=== PATIENT | male | born 1970 | race Caucasian/White ===

== ENCOUNTER 2018-05-18 15:05 | Emergency (ER) | payer OTHER, SELFPAY ==
[2018-05-18 15:09] VITALS: BP 168/109; PULSE 92; RESP 14; TEMP 36.8; O2SAT 100
--- NOTE | 2018-05-18 15:14 | NUR.NOTE ---
Pt. is running arm under cold water for comfort.
--- NOTE | 2018-05-18 15:27 | ED.GENADUL_ITS ---
Discharge Plan Disposition Patient Disposition: HOME Condition: Stable Discharge Details Chief Complaint: Burn Clinical Impression: Second degree burn of arm Primary Care Provider: Brent Perez ED Provider: Mary Valle Home Meds and New Rx's Prescriptions: New silver sulfadiazine [Silvadene] 1 % cream 1 applic TP DAILY Qty: 50 RF: 0 oxycodone 5 mg tablet 5 mg PO Q6H PRN (Reason: pain) Qty: 12 RF: 0 Continue losartan [Cozaar] 50 mg tablet 50 mg PO DAILY Qty: 90 RF: 3 Discharge Instructions Instructions: Second Degree Burn (ED) Additional Instructions: Apply the Silvadene cream to the affected area once to twice daily and cover with nonadherent dressings. Return to the emergency department for a wound check and dressing change. Follow-up with your primary care doctor in 2 days for reevaluation. Return immediately to the emergency department any worsening or new concerning symptoms at any time. Discharge Data Discharge Physician: Mary Valle Medical Decision Making 47-year-old male who presents with burn to left volar forearm approximately 3% superficial partial thickness with ruptured blisters that occurred after he came in contact with hot steam from a truck engine at work just prior to arrival. Also states he thinks he burned the left side of his face but there is no burn here and he denies any pain. Tetanus up-to-date last year. Patient appears uncomfortable. Patient drove himself here and is declining pain medication. Will give a dose of Tylenol and Motrin. Significant amount of grease and dirt noted to left palmar hand but no burn in this area. Will clean hand and forearm and debride loose skin around ruptured blisters and apply Silvadene. 1430 --left hand and forearm cleaned well with Hibclens. Loose skin above and around edges of blisters were debrided and silvadene cream was liberally applied to entire burn of forearm and covered with nonadherent dressing and kerlix. Patient was instructed to return here tomorrow for a wound check and dressing change. Patient was offered to come here Wednesday instead but states he will likely come here tomorrow. Patient was given tube of Silvadene and 2 tabs of oxycodone in addition to oxycodone prescription for home. Chart notes an allergy to codeine which causes itching but states he has tolerated oxycodone in the past without reaction. Instructed to return here at any time with any worsening or new concerning symptoms. HPI General Mode of arrival: ambulatory . Date/Time Provider Initiated Documentation: 05/18/18 15:25 . Limitations to Documentation: no limitations . Information obtained by: patient . HPI Narrative: Patient is a 47-year-old male who presents with burn to left forearm after contact with hot steam from a truck engine at work just prior to arrival. Patient states he pulled off his sweatshirt and this popped a blister on his arm. Patient has not taken anything for pain. Patient states it feels better to run under cool water. States his tetanus up-to-date one year ago. Patient states he also burned the left side of his face but does not see a burn there and there is no pain there. Past medical history: Hypertension, hyperlipidemia, kidney stone Surgical history: Hernia repair Medications: Losartan Allergies: Codeine (itching) PCP: [facility] Related Data Home Medications Medication Instructions Recorded Confirmed losartan 50 mg tablet 50 mg PO DAILY #90 tab-cap 03/18/18 05/18/18 oxycodone 5 mg PO Q6H PRN #12 tab 05/18/18 silver sulfadiazine [Silvadene] 1 applic TP DAILY #50 gm 05/18/18 Previous Rx's Medication Instructions Recorded losartan 50 mg tablet 50 mg PO DAILY #90 tab-cap 03/18/18 oxycodone 5 mg PO Q6H PRN #12 tab 05/18/18 silver sulfadiazine [Silvadene] 1 applic TP DAILY #50 gm 05/18/18 Allergies Allergy/AdvReac Type Severity Reaction Status Date / Time venom-honey bee Allergy Unknown Hives Unverified 03/18/18 09:20 codeine Allergy ITCHING Unverified 03/18/18 09:20 General Stated Complaint: Burn ARIAS: 2 Review of Systems Review of Systems All systems reviewed & are unremarkable except as noted in HPI and below Constitutional Reports as per HPI, Denies chills and Denies fever(s) Eyes Denies blurry vision ENT Denies dizziness, Denies sore throat and Denies throat swelling Cardiovascular Denies chest pain and Denies dyspnea Respiratory Denies dyspnea Gastrointestinal Denies abdominal pain, Denies diarrhea and Denies vomiting Genitourinary Denies hematuria and Denies dysuria Musculoskeletal Denies back pain and Denies numbness Integumentary/Breasts Denies lesions and Denies rash Neurologic Denies dizziness and Denies numbness Allergic/Immunologic Denies throat swelling PFSH Family History Mother Essential hypertension Father Diabetes Neoplasm Sister No problems noted. Sister No problems noted. Brother No problems noted. Grandfather No problems noted. Grandfather Diabetes Grandmother Heart disease Grandmother Diabetes Social History current occupational status: employed current occupation: Self employed Smoking/Tobacco Use Status: Current every day alcohol intake: never substance use type: does not use Exam Const General: cooperative, healthy appearing and no acute distress HENMT Head: normal to inspection Mouth: oral mucosae normal Eyes General: appearance normal, both eyes and all related structures Neck Neck: normal visual inspection Resp Effort & Inspection: normal respiratory effort and able to speak in complete sentences Cardio Rate: regular rate Skin Other: There is an approximate 3% second-degree partial-thickness burn with ruptured and intact blisters noted on volar aspect of the mid and distal forearm. There is some yellow active oozing. Full body images: 2 1. 3% second-degree partial-thickness Neuro General: alert, awake and oriented x3 Motor: muscle tone normal throughout Extrem General: normal to inspection and full ROM Elbow/forearm/wrist images: 2 1. 3% partial-thickness second-degree burn Other: Left radial and ulnar pulses intact. Cap refill less than 2 seconds. Psych Appearance: grossly normal Affect: normal affect Course Vital Signs Temperature 98.2 F 05/18/18 15:09 Pulse 92 H 05/18/18 15:09 Respiratory Rate 14 05/18/18 15:09 Blood Pressure 168/109 H 05/18/18 15:09 Pulse Oximetry 100 05/18/18 15:09 Temperature 98.2 F 05/18/18 15:09 Temperature Source Temporal Artery Scan 05/18/18 15:09 Pulse 92 H 05/18/18 15:09 Respiratory Rate 14 05/18/18 15:09 Blood Pressure 168/109 H 05/18/18 15:09 Pulse Oximetry 100 05/18/18 15:09 Pain Level 10 05/18/18 15:09
[2018-05-18] MEDS: Acetaminophen 325 MG TAB 650 MG PO (15:29)
[2018-05-18] MEDS: Ibuprofen 600 MG TAB PO (15:30)
--- NOTE | 2018-05-18 16:06 | NUR.NOTE ---
This RN scrubbed hand with soap and water, arm gently cleansed with soap and water. Pt. tolerated well.
[2018-05-18] MEDS: oxyCODONE 10 MG TAB PO (16:30)
--- NOTE | 2018-05-18 16:32 | NUR.NOTE ---
Wounds dressed with silvadene, non-stick dressing, wrapped in kerlix.
[2018-05-18 16:42] VITALS: BP 157/105; PULSE 85; RESP 14; O2SAT 100
== END 2018-05-18 16:46 | disposition home or self-care (01) ==
LOC: ER 16:56
PROVIDERS: Emergency Provider Physician Assistant; PCP Family Medicine
DX: T22.212A Burn of second degree of left forearm, initial encounter (principal); T31.0 Burns involving less than 10% of body surface; Y27.0XXA Contact with steam and hot vapors, undetermined intent, initial encounter
CPT/HCPCS: 99283

== ENCOUNTER 2018-05-19 12:59 | Emergency (ER) | payer OTHER, SELFPAY ==
[2018-05-19 13:04] VITALS: BP 152/88; PULSE 79; RESP 16; TEMP 37.2; O2SAT 99
--- NOTE | 2018-05-19 13:32 | W.ED.GENAD ---
Discharge Plan Disposition Patient Disposition: HOME Condition: Good Discharge Details Chief Complaint: Recheck Clinical Impression: Burn Primary Care Provider: Brent Perez ED Provider: Charles Calderon Home Meds and New Rx's Prescriptions: New amoxicillin-pot clavulanate [Augmentin] 875-125 mg tablet 1 tab PO BID Qty: 20 RF: 0 No Action losartan [Cozaar] 50 mg tablet 50 mg PO DAILY Qty: 90 RF: 3 silver sulfadiazine [Silvadene] 1 % cream 1 applic TP DAILY Qty: 50 RF: 0 oxycodone 5 mg tablet 5 mg PO Q6H PRN (Reason: pain) Qty: 12 RF: 0 Discharge Instructions Instructions: Third Degree Burn (ED), Second Degree Burn (ED) Referrals: Charles Calderon [employer] [Emergency Provider] - 1 day (At [facility]) Discharge Data Discharge Date/Time-TO BE ENTERED AT DEPARTURE: 05/19/18 13:44 Medical Decision Making I debrided the edges of the ruptured blisters. Changed to Bacitracin and started him on Augmentin. I will follow him in walk in clinic at . Advised to return for any signs of infection, increased redness, fever, etc. HPI General Mode of arrival: ambulatory. Date/Time Provider Initiated Documentation: 05/19/18 13:00. Limitations to Documentation: no limitations. Information obtained by: patient. History of Present Illness 47 year old M presents to the emergency department with the chief complaint of burn, described as moderate, HPI Narrative: 47 y/o male here for f/u on left wrist burn. Was seen here yesterday for chemical/mechanical burn. He had hot radiator fluid and steam splash on his left wrist. Was advised to return today for dressing change and wound check. Denies fevers but does feel warm. He has more swelling to the wrist today. 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 He has not taken any of the Percocet prescribed yesterday. Related Data Home Medications Medication Instructions Recorded Confirmed losartan 50 mg tablet 50 mg PO DAILY #90 tab-cap 03/18/18 05/19/18 oxycodone 5 mg PO Q6H PRN #12 tab 05/18/18 silver sulfadiazine [Silvadene] 1 applic TP DAILY #50 gm 05/18/18 amoxicillin-pot clavulanate 1 tab PO BID #20 tab 05/19/18 [Augmentin] Previous Rx's Medication Instructions Recorded losartan 50 mg tablet 50 mg PO DAILY #90 tab-cap 03/18/18 oxycodone 5 mg PO Q6H PRN #12 tab 05/18/18 silver sulfadiazine [Silvadene] 1 applic TP DAILY #50 gm 05/18/18 amoxicillin-pot clavulanate 1 tab PO BID #20 tab 05/19/18 [Augmentin] Allergies Allergy/AdvReac Type Severity Reaction Status Date / Time venom-honey bee Allergy Unknown Hives Unverified 03/18/18 09:20 codeine Allergy ITCHING Unverified 03/18/18 09:20 General Stated Complaint: Recheck ARIAS: 4 Review of Systems Eyes Reports system reviewed and no additional complaints, except as docu ENT Reports system reviewed and no additional complaints, except as docu Cardiovascular Reports system reviewed and no additional complaints, except as docu Respiratory Reports system reviewed and no additional complaints, except as docu Musculoskeletal Reports stiffness (left wrist) Integumentary/Breasts Comments: burn left wrist. Exam [facility] Head: atraumatic Ears: hearing grossly normal bilaterally and external ears normal General nose exam: external nose normal and nares normal Eyes General: appearance normal, both eyes and all related structures Neck Neck: normal visual inspection and full ROM Resp Effort & Inspection: normal respiratory effort Skin Wounds: wounds noted (burn to anterior side of left wrist. No drainage, no ascending redness, no lymphadema but there is swelling to the wrist. Volar side>dorsal side. Good CSMT to wrist, hand, and fingers. ) Neuro General: alert, awake and oriented x3 Extrem Right upper extremity: wrist (burn to anteriror side of wrist) Elbow/forearm/wrist images: 1. 2nd to 3rd degree caballero. Smal blisters intact to upper end of burn. Course Vital Signs Temperature 37.2 C 05/19/18 13:04 Pulse 79 05/19/18 13:04 Respiratory Rate 16 05/19/18 13:04 Blood Pressure 152/88 H 05/19/18 13:04 Pulse Oximetry 99 05/19/18 13:04 Temperature 37.2 C 05/19/18 13:04 Temperature Source Temporal Artery Scan 05/19/18 13:04 Pulse 79 05/19/18 13:04 Respiratory Rate 16 05/19/18 13:04 Respiratory Effort Non-Labored 05/19/18 13:06 Blood Pressure 152/88 H 05/19/18 13:04 Blood Pressure Position Sitting 05/19/18 13:04 Pulse Oximetry 99 05/19/18 13:04 Oxygen Delivery Method Room Air 05/19/18 13:04 Oxygen Flow Rate 0 05/19/18 13:04 Pain Level 0 05/19/18 13:04
--- NOTE | 2018-05-19 13:35 | ED.GENADUL_ITS ---
Discharge Plan Disposition Patient Disposition: HOME Condition: Good Discharge Details Chief Complaint: Recheck Clinical Impression: Burn Primary Care Provider: Brent Perez ED Provider: Charles Calderon Home Meds and New Rx's Prescriptions: New amoxicillin-pot clavulanate [Augmentin] 875-125 mg tablet 1 tab PO BID Qty: 20 RF: 0 No Action losartan [Cozaar] 50 mg tablet 50 mg PO DAILY Qty: 90 RF: 3 silver sulfadiazine [Silvadene] 1 % cream 1 applic TP DAILY Qty: 50 RF: 0 oxycodone 5 mg tablet 5 mg PO Q6H PRN (Reason: pain) Qty: 12 RF: 0 Discharge Instructions Instructions: Third Degree Burn (ED), Second Degree Burn (ED) Referrals: Charles Calderon SALVAGE WINDER [Emergency Provider] - 1 day (At [facility]) Discharge Data Discharge Date/Time-TO BE ENTERED AT DEPARTURE: 05/19/18 13:44 Medical Decision Making I debrided the edges of the ruptured blisters. Changed to Bacitracin and started him on Augmentin. I will follow him in walk in clinic at . Advised to return for any signs of infection, increased redness, fever, etc. HPI General Mode of arrival: ambulatory . Date/Time Provider Initiated Documentation: 05/19/18 13:00 . Limitations to Documentation: no limitations . Information obtained by: patient . History of Present Illness 47 year old M presents to the emergency department with the chief complaint of burn, described as moderate, HPI Narrative: 47 y/o male here for f/u on left wrist burn. Was seen here yesterday for chemical/mechanical burn. He had hot radiator fluid and steam splash on his left wrist. Was advised to return today for dressing change and wound check. Denies fevers but does feel warm. He has more swelling to the wrist today. 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 He has not taken any of the Percocet prescribed yesterday. Related Data Home Medications Medication Instructions Recorded Confirmed losartan 50 mg tablet 50 mg PO DAILY #90 tab-cap 03/18/18 05/19/18 oxycodone 5 mg PO Q6H PRN #12 tab 05/18/18 silver sulfadiazine [Silvadene] 1 applic TP DAILY #50 gm 05/18/18 amoxicillin-pot clavulanate 1 tab PO BID #20 tab 05/19/18 [Augmentin] Previous Rx's Medication Instructions Recorded losartan 50 mg tablet 50 mg PO DAILY #90 tab-cap 03/18/18 oxycodone 5 mg PO Q6H PRN #12 tab 05/18/18 silver sulfadiazine [Silvadene] 1 applic TP DAILY #50 gm 05/18/18 amoxicillin-pot clavulanate 1 tab PO BID #20 tab 05/19/18 [Augmentin] Allergies Allergy/AdvReac Type Severity Reaction Status Date / Time venom-honey bee Allergy Unknown Hives Unverified 03/18/18 09:20 codeine Allergy ITCHING Unverified 03/18/18 09:20 General Stated Complaint: Recheck ARIAS: 4 Review of Systems Eyes Reports system reviewed and no additional complaints, except as docu ENT Reports system reviewed and no additional complaints, except as docu Cardiovascular Reports system reviewed and no additional complaints, except as docu Respiratory Reports system reviewed and no additional complaints, except as docu Musculoskeletal Reports stiffness (left wrist) Integumentary/Breasts Comments: burn left wrist. Exam [facility] Head: atraumatic Ears: hearing grossly normal bilaterally and external ears normal General nose exam: external nose normal and nares normal Eyes General: appearance normal, both eyes and all related structures Neck Neck: normal visual inspection and full ROM Resp Effort & Inspection: normal respiratory effort Skin Wounds: wounds noted (burn to anterior side of left wrist. No drainage, no ascending redness, no lymphadema but there is swelling to the wrist. Volar side> dorsal side. Good CSMT to wrist, hand, and fingers. ) Neuro General: alert, awake and oriented x3 Extrem Right upper extremity: wrist (burn to anteriror side of wrist) Elbow/forearm/wrist images: 2 1. 2nd to 3rd degree caballero. Smal blisters intact to upper end of burn. Course Vital Signs Temperature 37.2 C 05/19/18 13:04 Pulse 79 05/19/18 13:04 Respiratory Rate 16 05/19/18 13:04 Blood Pressure 152/88 H 05/19/18 13:04 Pulse Oximetry 99 05/19/18 13:04 Temperature 37.2 C 05/19/18 13:04 Temperature Source Temporal Artery Scan 05/19/18 13:04 Pulse 79 05/19/18 13:04 Respiratory Rate 16 05/19/18 13:04 Respiratory Effort Non-Labored 05/19/18 13:06 Blood Pressure 152/88 H 05/19/18 13:04 Blood Pressure Position Sitting 05/19/18 13:04 Pulse Oximetry 99 05/19/18 13:04 Oxygen Delivery Method Room Air 05/19/18 13:04 Oxygen Flow Rate 0 05/19/18 13:04 Pain Level 0 05/19/18 13:04
[2018-05-19] MEDS: Amoxicillin 875/Clav. 125 TAB PO (13:42)
[2018-05-19] MEDS: Bacitracin 30 GM TUBE (13:42)
== END 2018-05-19 13:44 | disposition home or self-care (01) ==
LOC: ER 13:45
PROVIDERS: Emergency Provider Nurse Practitioner Family; PCP Family Medicine
DX: T23.272A Burn of second degree of left wrist, initial encounter (principal); T23.372A Burn of third degree of left wrist, initial encounter; X12.XXXA Contact with other hot fluids, initial encounter; X13.1XXA Other contact with steam and other hot vapors, initial encounter; Y99.0 Civilian activity done for income or pay; Y92.59 Other trade areas as the place of occurrence of the external cause; I10 Essential (primary) hypertension
CPT/HCPCS: 16020

== ENCOUNTER 2018-07-05 10:48 | Outpatient (CLI) | payer OTHER, SELFPAY ==
[2018-07-05 12:55] LABS: Abs Immature Grans 0.01 k/cumm (0.0-0.09); Absolute Basophil Count 0.03 k/cumm (0.0-0.2); Absolute Lymphocyte Count 1.78 k/cumm (1.2-3.4); Absolute Monocyte Count 0.43 k/cumm (0.11-0.7); Absolute Neutrophil Count 3.55 k/cumm (1.2-6.7); Basophils % 0.5; Eosinophils % 1.7; HCT 38.2 % (40.0-50.0); HGB 13.4 g/dL (13.5-17.5); Immature Grans % 0.2; Lymphocytes % 30.2; Mean Corp. HGB Concentration 35.1 g/dL (32.0-36.0); Mean Corpuscular Hemoglobin 30.5 pg (27.0-33.0); Mean Platelet Volume 10.1 fL (8.0-11.0); Monocytes % 7.3; Neutrophils % 60.1; Platelet Count 336 x1000/uL (130-400); RBC 4.39 m/cumm (4.50-6.00); RBC Distribution Width 12.6 % (11.8-14.1)
[2018-07-05 13:17] LABS: ALT 30 U/L (12-78); AST 16 U/L (15-37); Albumin 3.8 g/dL (3.4-5.0); Alkaline Phosphatase 91 U/L (46-116); Anion Gap 9.4 mmol/L (3-11); BUN 12 mg/dL (7-18); Bilirubin, Total 0.4 mg/dL (0.2-1.0); CO2 32.6 mmol/L (21.0-32.0); Calcium 9.4 mg/dL (8.5-10.1); Chloride 99 mmol/L (98-107); Cholesterol 217 mg/dL (50-200); Glucose 90 mg/dL (70-100); HDL Cholesterol 36 mg/dL (40-60); LDL CHOLESTEROL 116 mg/dL (<100); Potassium 3.1 mmol/L (3.5-5.1); Sodium 141 mmol/L (136-145); Total Protein 7.7 g/dL (6.4-8.2); Triglyceride 348 mg/dL (30-150)
[2018-07-05 14:02] LABS: ESR 33 MM/HR (0-15)
== END 2018-07-05 11:08 ==
PROVIDERS: PCP Family Medicine; Visit Provider Family Medicine
DX: R51 Headache (principal); Z00.00 Encounter for general adult medical examination without abnormal findings; E78.5 Hyperlipidemia, unspecified; I10 Essential (primary) hypertension
CPT/HCPCS: 36415; 80053; 80061; 83721; 85652; 85025

== ENCOUNTER 2018-12-03 10:13 | Emergency (ER) | payer OTHER, SELFPAY ==
[2018-12-03 10:17] VITALS: BP 140/91; PULSE 95; RESP 14; TEMP 36.7; O2SAT 98
[2018-12-03] MEDS: Balanced Salt Solution 15 ML BTL OP (10:28)
[2018-12-03] MEDS: Erythromycin Ophth Oint 3.5 GM TUBE OP (10:29)
[2018-12-03] MEDS: Fluorescein STRIPS 100/BOX 1 MG OP (10:29)
[2018-12-03] MEDS: Tetracaine 0.5% 4 ML BTL OP (10:29)
--- NOTE | 2018-12-03 11:55 | ED.GENADUL_ITS ---
Discharge Plan Disposition Patient Disposition: HOME Condition: Improving Discharge Details Chief Complaint: EyeProblem Clinical Impression: Foreign body of left eye Primary Care Provider: Brent Perez ED Provider: Rashad Camara Home Meds and New Rx's Prescriptions: Continued losartan [Cozaar] 50 mg tablet 50 mg PO DAILY Qty: 90 RF: 3 Discharge Instructions Instructions: Eye Foreign Body (ED) Additional Instructions: Please use the provided ointment 4 times daily and apply half inch to left lower eyelid for the next 5 days. Please follow-up with [facility] for reassessment in the next couple days. Return to the emergency department for any new or significant worsening of symptoms or further concerns. Referrals: [facility] [Outside] (Follow-up in the next couple days for reassessment and to ensure that your eye is healing well.) Discharge Data Discharge Date/Time-TO BE ENTERED AT DEPARTURE: 12/03/18 12:02 Medical Decision Making Left eye foreign body 3 days ago. Patient states that he was filing a chainsaw with a hand file when the wind blew and he felt that he got objects into his left eye. Slit-lamp exam and Keller lamp shows slight dye uptake approximately 3 o'clock on the conjunctitiva involvement, small particulate foreign bodies that were removed with moistened cotton tip swab but no rust ring is noted no other abnormality seen. Given area of dye uptake and foreign bodies patient placed up on erythromycin ointment 4 times daily for the next 5 days. Tetanus is up-to-date. Return precautions discussed. Patient to follow-up with [facility] for reassessment. After discussion of diagnosis and plan of care patient has no further needs, questions, or concerns and states clear understanding to return to the emergency department for any worsening symptoms. HPI General Mode of arrival: ambulatory . Date/Time Provider Initiated Documentation: 12/03/18 10:23 . Limitations to Documentation: no limitations . Information obtained by: patient and RN notes reviewed . History of Present Illness 48 year old M presents to the emergency department with the chief complaint of Left eye foreign body, described as moderate, with intensity rated at 2. Quality is described as burning, and is localized to the eyes and left. Patient started experiencing this day(s) (3) and it has been constant. Patient notes no other symptoms.. Patient did receive the following treatments prior to arrival, none Related Data Home Medications Medication Instructions Recorded Confirmed losartan 50 mg tablet 50 mg PO DAILY #90 tab-cap 03/18/18 12/03/18 Previous Rx's Medication Instructions Recorded losartan 50 mg tablet 50 mg PO DAILY #90 tab-cap 03/18/18 Allergies Allergy/AdvReac Type Severity Reaction Status Date / Time venom-honey bee Allergy Unknown Hives Unverified 12/03/18 10:20 codeine Allergy ITCHING Unverified 12/03/18 10:20 General Stated Complaint: EyeProblem ARIAS: 3 Review of Systems Constitutional Denies headache(s) Eyes Reports as per HPI, Denies blind spots, Denies diplopia, Denies eye discharge, Reports irritation, Denies loss of vision, Reports eye pain and Reports photophobia ENT Denies headache(s) Neurologic Denies headache(s), Denies loss of vision and Denies other visual disturbances PFSH Family History Mother Essential hypertension Father Diabetes Neoplasm Sister No problems noted. Sister No problems noted. Brother No problems noted. Grandfather No problems noted. Grandfather Diabetes Grandmother Heart disease Grandmother Diabetes Social History Smoking/Tobacco Use Status: Current every day Alcohol Intake: never Drug use: Never Substance use type: does not use current occupation: Self employed What type of physical activity do you participate in: none Do you feel safe at home: Yes Do you feel safe in your relationship?: Yes Exam Const General: cooperative, no acute distress and not ill appearing Orientation: alert, awake and oriented x3 HENMT Head: normal to inspection, normocephalic and atraumatic Eyes General: appearance normal, both eyes and all related structures Visual Rueda: normal visual rueda by confrontation Alignment and Position: alignment normal and position normal Periorbital: periorbital findings normal Eyelids: eyelids normal Conjunctivae: conjunctival abnormality left other (dye uptake at 3 o'clock) Sclera: sclerae normal Cornea: corneas normal and fluorescein used Pupils: PERRL, normal by confrontation and accommodation normal EOM: EOM intact bilaterally Resp Effort & Inspection: normal respiratory effort, able to speak in complete sente nces and no respiratory distress Course Vital Signs Temperature 36.7 C 12/03/18 10:17 Pulse 95 H 12/03/18 10:17 Respiratory Rate 14 12/03/18 10:17 Blood Pressure 140/91 H 12/03/18 10:17 Pulse Oximetry 98 12/03/18 10:17 Temperature 36.7 C 12/03/18 10:17 Temperature Source Temporal Artery Scan 12/03/18 10:17 Pulse 95 H 12/03/18 10:17 Respiratory Rate 14 12/03/18 10:17 Respiratory Effort Non-Labored 12/03/18 10:17 Blood Pressure 140/91 H 12/03/18 10:17 Blood Pressure Position Sitting 12/03/18 10:17 Pulse Oximetry 98 12/03/18 10:17 Oxygen Delivery Method Room Air 12/03/18 10:17 Oxygen Flow Rate 0 12/03/18 10:17 Pain Level 2 12/03/18 10:17
== END 2018-12-03 12:02 | disposition home or self-care (01) ==
PROVIDERS: Emergency Provider Nurse Practitioner Family; PCP Family Medicine
DX: T15.12XA Foreign body in conjunctival sac, left eye, initial encounter (principal); X58.XXXA Exposure to other specified factors, initial encounter
CPT/HCPCS: 99283

== ENCOUNTER 2019-12-19 08:16 | Emergency (ER) | payer OTHER, SELFPAY ==
[2019-12-19 08:21] VITALS: BP 190/116; PULSE 78; RESP 16; TEMP 36.7; O2SAT 99
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
[2019-12-19 09:15] VITALS: BP 185/113; PULSE 77; RESP 16; TEMP 36.7; O2SAT 98
== END 2019-12-19 09:05 | disposition home or self-care (01) ==
PROVIDERS: Emergency Provider Physician Assistant; PCP Family Medicine
DX: M25.611 Stiffness of right shoulder, not elsewhere classified (principal); M25.612 Stiffness of left shoulder, not elsewhere classified; M25.60 Stiffness of unspecified joint, not elsewhere classified; V03.10XA Pedestrian on foot injured in collision with car, pick-up truck or van in traffic accident, initial encounter; Y99.0 Civilian activity done for income or pay; Z91.14 Patient's other noncompliance with medication regimen; I10 Essential (primary) hypertension
CPT/HCPCS: 99282; 99283

== ENCOUNTER 2020-02-14 02:56 | Outpatient (CLI) | payer BC, SELFPAY ==
[2020-02-14 07:29] LABS: HCT 44.6 % (40.0-50.0); HGB 15.3 g/dL (13.5-17.5); MCH 30.4 pg (27.0-33.0); MCHC 34.3 % (32.0-36.0); MCV 88.7 fL (80-95); MPV 9.9 fL (8.0-11.0); Platelet Count 275 10^3/uL (130-400); RBC 5.03 10^6/uL (4.36-5.78); RDW 12.4 % (11.8-14.1); RDW-SD 40.3 fL; WBC 6.21 10^3/uL (4.4-10.8)
[2020-02-14 08:03] LABS: ALT 43 U/L (16-63); AST 20 U/L (15-37); Albumin 3.9 g/dL (3.4-5.0); Alkaline Phosphatase 136 U/L (46-116); BUN 18 mg/dL (7-18); Bilirubin, Total 0.5 mg/dL (0.2-1.0); CREATININE 0.95 mg/dL (0.70-1.30); Calcium 9.2 mg/dL (8.5-10.1); Calculated LDL 163 mg/dL (<100); Chloride 107 mmol/L (98-107); Cholesterol 241 mg/dL (<200); Glucose 114 mg/dL (74-106); HDL Cholesterol 40 mg/dL (40-60); Magnesium 2.1 mg/dL (1.8-2.4); Potassium 5.2 mmol/L (3.5-5.1); Sodium 143 mmol/L (136-145); Total Protein 7.3 g/dL (6.4-8.2); Triglyceride 191 mg/dL (<150)
== END 2020-02-14 03:16 ==
PROVIDERS: PCP Student in an Organized Health Care Education/Training Program; Visit Provider Student in an Organized Health Care Education/Training Program
DX: Z00.00 Encounter for general adult medical examination without abnormal findings (principal); Z13.220 Encounter for screening for lipoid disorders; E87.6 Hypokalemia; I10 Essential (primary) hypertension
CPT/HCPCS: 36415; 80053; 80061; 85027; 83735

== ENCOUNTER 2020-04-05 11:37 | Outpatient (REF) | payer BC, SELFPAY ==
[2020-04-05 19:10] LABS: Anion Gap 8.7 mmol/L (3-11); BUN 14 mg/dL (7-18); CO2 26.3 mmol/L (21.0-32.0); CREATININE 0.99 mg/dL (0.70-1.30); Calcium 9.2 mg/dL (8.5-10.1); Chloride 105 mmol/L (98-107); Glucose 97 mg/dL (74-106); Potassium 4.1 mmol/L (3.5-5.1); Sodium 140 mmol/L (136-145)
== END 2020-04-05 11:57 ==
LOC: LBO 11:37
PROVIDERS: PCP Student in an Organized Health Care Education/Training Program; Visit Provider Student in an Organized Health Care Education/Training Program
DX: I10 Essential (primary) hypertension (principal); E87.5 Hyperkalemia
CPT/HCPCS: 80048

== ENCOUNTER 2020-06-23 15:44 | Emergency (ER) | payer BC, SELFPAY ==
[2020-06-23 15:49] VITALS: BP 171/87; PULSE 84; RESP 18; TEMP 37.2; O2SAT 99
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
[2020-06-23] MEDS: Cephalexin 500 MG CAP, 4 CAPS/BTL PO (16:41)
--- NOTE | 2020-06-24 09:19 | NUR.NOTE ---
Lab called to report preliminary results of knee wound culture. Patient has Group A Strep in wound culture. Dr. Ros Escalera made aware of findings.
== END 2020-06-23 16:58 | disposition home or self-care (01) ==
PROVIDERS: Emergency Provider Emergency Medicine; PCP Student in an Organized Health Care Education/Training Program
DX: L03.115 Cellulitis of right lower limb (principal); L02.415 Cutaneous abscess of right lower limb; B95.0 Streptococcus, group A, as the cause of diseases classified elsewhere; I10 Essential (primary) hypertension
CPT/HCPCS: 10061; 87077; 87070; 87205

== ENCOUNTER 2021-06-26 03:24 | Outpatient (CLI) | payer BC, SELFPAY ==
[2021-06-26 13:43] LABS: Anion Gap 12.6 mmol/L (3-11); BUN 11 mg/dL (7-18); CO2 23.4 mmol/L (21.0-32.0); Calculated LDL 168 mg/dL (<100); Chloride 103 mmol/L (98-107); Cholesterol 255 mg/dL (<200); Glucose 149 mg/dL (74-106); HDL Cholesterol 42 mg/dL (40-60); Potassium 3.6 mmol/L (3.5-5.1); Sodium 139 mmol/L (136-145); Triglyceride 225 mg/dL (<150)
[2021-06-27 10:34] LABS: Lyme Ab w Rflx to Lyme Confirm Negative (Negative)
[2021-06-27 11:25] LABS: Hepatitis C Ab w Rflx HCV PCR Negative (Negative)
[2021-06-27 11:43] LABS: HIV-1/2 Ag & Ab Screen Negative (Negative)
[2021-06-27 15:48] LABS: ANA Interpretation Negative (Negative)
[2021-06-30 00:29] LABS: Anaplasma phagocytophilum Negative (Negative); B. miyamotoi PCR Negative (Negative); Babesia divergens/MO-1 Negative (Negative); Babesia duncani Negative (Negative); Babesia microti Negative (Negative); Ehrlichia chaffeensis Negative (Negative); Ehrlichia ewingii/canis Negative (Negative); Ehrlichia muris eauclairensis Negative (Negative)
== END 2021-06-26 03:25 | disposition home or self-care (01) ==
LOC: LBO 03:25
PROVIDERS: Nurse Practitioner; PCP Student in an Organized Health Care Education/Training Program; Visit Provider Student in an Organized Health Care Education/Training Program
DX: I10 Essential (primary) hypertension (principal); Z13.220 Encounter for screening for lipoid disorders; Z83.3 Family history of diabetes mellitus; W57.XXXA Bitten or stung by nonvenomous insect and other nonvenomous arthropods, initial encounter; Z11.59 Encounter for screening for other viral diseases; Z11.4 Encounter for screening for human immunodeficiency virus [HIV]
CPT/HCPCS: 36415; 80048; 80061; 86803; 87389; 87798; 86038; 86618

== ENCOUNTER 2023-08-12 10:04 | Outpatient (CLI) | payer SELFPAY ==
[2023-08-12 10:30] LABS: Abs Immature Grans 0.02 10^3/uL (0.0-0.06); Absolute Basophil Count 0.06 10^3/uL (0.0-0.2); Absolute Eosinophil Count 0.23 10^3/uL (0.0-0.7); Absolute Lymphocyte Count 1.51 10^3/uL (1.2-3.4); Absolute Monocyte Count 0.47 10^3/uL (0.1-0.8); Absolute Neutrophil Count 3.75 10^3/uL (1.2-6.7); Eosinophils % 3.8; HCT 44.3 % (40.0-50.0); HGB 15.5 g/dL (13.5-17.5); Immature Grans % 0.3; MCH 30.9 pg (27.0-33.0); MCV 88 fL (80-95); MPV 9.3 fL (8.0-11.0); Monocytes % 7.8; Neutrophils % 62.1; Platelet Count 288 10^3/uL (130-400); RBC 5.02 10^6/uL (4.36-5.78); RDW 12.6 % (11.8-14.1); RDW-SD 40.6 fL; WBC 6.04 10^3/uL (4.4-10.8)
[2023-08-12 11:24] LABS: ALT 38 U/L (16-63); AST 17 U/L (15-37); Alkaline Phosphatase 117 U/L (46-116); Anion Gap 10.7 mmol/L (3-11); BUN 9 mg/dL (7-18); Bilirubin, Total 0.5 mg/dL (0.2-1.0); CO2 26.3 mmol/L (21.0-32.0); CREATININE 0.8 mg/dL (0.70-1.30); Calcium 9.1 mg/dL (8.5-10.1); Chloride 106 mmol/L (98-107); Estimated GFR 105.17 (mL/min/1.73m2); Glucose 108 mg/dL (74-106); Potassium 3.9 mmol/L (3.5-5.1); Sodium 143 mmol/L (136-145); Total Protein 7.6 g/dL (6.4-8.2)
[2023-08-12 22:46] LABS: Hemoglobin A1C 5.5 % (<5.7)
[2023-08-13 11:03] LABS: Lyme Ab w Rflx to Lyme Confirm Negative (Negative)
[2023-08-15 13:19] LABS: Anaplasma phagocytophilum Negative (Negative); B. miyamotoi PCR Negative (Negative); Babesia divergens/MO-1 Negative (Negative); Babesia duncani Negative (Negative); Babesia microti Negative (Negative); Ehrlichia chaffeensis Negative (Negative); Ehrlichia ewingii/canis Negative (Negative); Ehrlichia muris eauclairensis Negative (Negative)
[2023-08-18 16:51] LABS: Lab Add On Test DONE
== END 2023-08-12 10:05 | disposition home or self-care (01) ==
LOC: LBO 10:08
PROVIDERS: PCP Student in an Organized Health Care Education/Training Program; Visit Provider Student in an Organized Health Care Education/Training Program
DX: K76.9 Liver disease, unspecified (principal); Z91.89 Other specified personal risk factors, not elsewhere classified; S30.860A Insect bite (nonvenomous) of lower back and pelvis, initial encounter; W57.XXXA Bitten or stung by nonvenomous insect and other nonvenomous arthropods, initial encounter; A69.23 Arthritis due to Lyme disease; B88.2 Other arthropod infestations; R73.09 Other abnormal glucose
CPT/HCPCS: 36415; 80053; 87798; 83036; 85025; 86618

== ENCOUNTER 2023-08-19 12:01 | Outpatient (CLI) | payer BC, SELFPAY ==
[2023-08-20 19:33] LABS: Galactose-alpha-1,3 IgE 2.32 kU/L (<0.70)
== END 2023-08-19 12:02 | disposition home or self-care (01) ==
LOC: LBO 12:01
PROVIDERS: PCP Student in an Organized Health Care Education/Training Program; Visit Provider Student in an Organized Health Care Education/Training Program
DX: Z91.018 Allergy to other foods (principal); S30.860A Insect bite (nonvenomous) of lower back and pelvis, initial encounter; W57.XXXA Bitten or stung by nonvenomous insect and other nonvenomous arthropods, initial encounter; B88.2 Other arthropod infestations; X58.XXXA Exposure to other specified factors, initial encounter
CPT/HCPCS: 36415; 86003

== ENCOUNTER 2025-01-06 07:03 | Emergency (ER) | payer SELFPAY ==
[2025-01-06] VITALS (26 sets, daily range): BP systolic 146–191; BP diastolic 83–120; PULSE 65–117; RESP 11–25; TEMP 36.6; O2SAT 91–100
--- NOTE | 2025-01-06 07:00 | RT.EKG_ITS ---
APPROVED REPORT Exam: Resting ECG Reason for Exam: SOB Patient Location: E HR:101 bpm ECG Measurements Heart Rate 101 AXIS WY 156 P 28 QRSd 94 QRS 10 QT 371 T -35 QTc 481 Conclusion Sinus tachycardia...rate> 99 Probable left atrial enlargement...P >50mS, <-0.10mV V1
--- NOTE | 2025-01-06 07:00 | RT.EKG_ITS ---
APPROVED REPORT Exam: Resting ECG Reason for Exam: SOB Patient Location: E HR:103 bpm ECG Measurements Heart Rate 103 AXIS CO 155 P 0 QRSd 96 QRS -23 QT 374 T -29 QTc 491 Conclusion Sinus tachycardia, rate 103 Borderline QTc prolongation at 493ms No STEMI T wave inversion III, aVF, no priors available for comparison
--- NOTE | 2025-01-06 07:00 | DI.RAD_ITS ---
Exam(s) XR CHEST 2V PA LATERAL EXAM: XR CHEST 2V PA LATERAL CLINICAL HISTORY: shortness of breath TECHNIQUE: 2D digital imaging was performed. Two views. COMPARISON: CR CHEST 2 VIEWS PA,LAT from 06/30/2012 CR CHEST 2 VIEWS PA,LAT from 02/24/2016 FINDINGS: HEART: Normal size. Aorta: Not dilated. PULMONARY VASCULATURE: Normal. MEDIASTINUM: Unremarkable. LUNGS: Clear. PLEURAL SPACE: No pleural effusion or pneumothorax. BONE:Old calcification adjacent to the right ribs. Present on 2012 exam. SOFT TISSUES: Unremarkable. IMPRESSION: No acute abnormality. The preliminary [facility] report was reviewed. DATA REPOSITORY: RADIATION DOSE DELIVERED:
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
[2025-01-06 07:30] LABS: Abs Immature Grans 0.04 10^3/uL (0.0-0.06); HCT 43.8 % (40.0-50.0); HGB 15.4 g/dL (13.5-17.5); Immature Grans % 0.6 %; MCH 31.8 pg (27.0-33.0); MCHC 35.2 % (32.0-36.0); MCV 90 fL (80-95); MPV 9.9 fL (8.0-11.0); Platelet Count 261 10^3/uL (130-400); RBC 4.85 10^6/uL (4.36-5.78); RDW 12.3 % (11.8-14.1); RDW-SD 40.9 fL; WBC 7.10 10^3/uL (4.4-10.8)
[2025-01-06] MEDS: Aspirin 81 MG CHEW 324 MG CH (07:35)
[2025-01-06] MEDS: Furosemide 40 MG/4 ML VIAL IVP (07:49)
[2025-01-06 07:52] LABS: ALT 42 U/L (16-63); AST 17 U/L (15-37); Albumin 3.8 g/dL (3.4-5.0); Alkaline Phosphatase 131 U/L (46-116); Anion Gap 11.5 mmol/L (3-11); BUN 14 mg/dL (7-18); Bilirubin, Total 0.3 mg/dL (0.2-1.0); CO2 26.5 mmol/L (21.0-32.0); Calcium 8.5 mg/dL (8.5-10.1); Chloride 104 mmol/L (98-107); Estimated GFR 78.79 (mL/min/1.73m2); Glucose 158 mg/dL (74-106); Magnesium 2.0 mg/dL (1.8-2.4); NT-proBNP 331 pg/mL (<300); Potassium 3.2 mmol/L (3.5-5.1); Sodium 142 mmol/L (136-145); Total Protein 7.3 g/dL (6.4-8.2); Troponin I 21 ng/L (<or=76)
[2025-01-06] MEDS: Potassium Chloride 20 MEQ TABCR 40 MEQ PO (08:12)
[2025-01-06 08:42] LABS: Troponin I 17 ng/L (<or=76)
--- NOTE | 2025-01-06 08:59 | DI.VRAD_ITS ---
PROCEDURE INFORMATION: Exam: XR Chest Exam date and time: 01/06/2025 7:34 AM Age: 54 years old Clinical indication: Other: SOB TECHNIQUE: Imaging protocol: Radiologic exam of the chest. Views: 2 views. COMPARISON: No relevant prior studies available. FINDINGS: Lungs: No focal consolidation. Pleural spaces: No large pleural effusion. Heart/Mediastinum: No cardiomegaly. Bones/joints: Elongated density projecting over the right upper lung, possibly osseous lesion or soft tissue calcification. Cannot exclude pleural or parenchymal pathology. . IMPRESSION: 1. No acute findings to explain reported symptoms. 2. Findings as above. Dictated and Authenticated by: Jenelle Fitzgerald MD. Orderin [facility]. Andres Burch MD
[2025-01-06] MEDS: amLODIPine 5 MG TAB 10 MG PO (09:52)
== END 2025-01-06 09:57 | disposition home or self-care (01) ==
LOC: ER 10:19
PROVIDERS: Emergency Provider Emergency Medicine; PCP Nurse Practitioner Family
DX: R06.02 Shortness of breath (principal); I10 Essential (primary) hypertension; R00.0 Tachycardia, unspecified; R94.31 Abnormal electrocardiogram [ECG] [EKG]; T46.1X6A Underdosing of calcium-channel blockers, initial encounter; F17.220 Nicotine dependence, chewing tobacco, uncomplicated; Z91.148 Patient's other noncompliance with medication regimen for other reason
CPT/HCPCS: 36415; 80053; 93005; 93308; 96374; 99285; 71046; 83735; 83880; 84484; 85025; 93010; 99284; J1938

== ENCOUNTER 2025-01-23 02:52 | Outpatient (CLI) | payer SELFPAY ==
--- NOTE | 2025-01-23 08:45 | DI.US_ITS ---
APPROVED REPORT EXAM: Comprehensive 2D, Doppler, and color-flow Echocardiogram Patient Location: Out-Patient Loading Machine Operator: Mushtaq Arzate RDCS (AE) Indications: Dyspnea on exertion, HTN Other Information Study Quality: Adequate Conclusion Normal left ventricular wall thickness and chamber size. Ejection fraction is 60%. Wall motion is normal Normal right ventricular size and function Both atria are normal in size There is no structural or hemodynamically significant valvular disease Ascending aorta measures 3.76 cm Wall motion Left Ventricle The left ventricle is normal size. Left ventricular systolic function is normal. The left ventricular ejection fraction is within the normal range. Mild basal septal hypertrophy is present. There is normal LV segmental wall motion. There is no ventricular septal defect visualized. LVEF is 60-65%. Right Ventricle The right ventricle is normal size. The right ventricular systolic function is normal. Atria The left atrium size is normal. The right atrium size is normal. The interatrial septum is intact with no evidence for an atrial septal defect. Aortic Valve The aortic valve is normal in structure. Aortic valve is trileaflet. There is no aortic valvular stenosis. No aortic regurgitation is present. Mitral Valve The mitral valve is normal in structure. No evidence of mitral valve stenosis. There is no mitral valve regurgitation noted. Tricuspid Valve The tricuspid valve is normal in structure. There is no tricuspid valve stenosis. Trace tricuspid regurgitation. Pulmonic Valve The pulmonary valve is normal in structure. There is no pulmonic valvular stenosis. Mild pulmonic regurgitation. Great Vessels The aortic root is normal in size. The pulmonary artery is normal. The ascending aorta is mildly dilated. Aortic arch is normal in caliber. Pericardium There is no pericardial effusion. 2D Dimensions IVSD d PLAX 1.44 cm M: 0.6-1.2 Ao Root d 3.52 cm M: 3.1 - 3.7 LVPW d PLAX 1.15 cm M: 0.6 - 1.2 Ao Asc Diam d 3.76 cm M: 2.6 - 3.4 LVID d PLAX 4.17 cm M: 4.2 - 5.8 LVDs 2.85 cm M: 2.5 - 4.0 LV EF Teichholz 60.0 % FS 31.60 % LV EDV (Teich) 77.1 mL LV ESV (Teich) 30.8 mL Stroke Vol Index (Teich) 23.35 M-Mode TAPSE 2.61 cm (M/F) >1.7 Auto EF LV EDV A4C 169.6 mL LV EDV A2C 153.0 mL LV EDV BP 160.9 mL LV ESV A4C 76.8 mL LV ESV A2C 63.7 mL LV ESV BP 69.5 mL LVEF(%) A4C 54.7 % LVEF(%) A2C 58.4 % LVEF(%) BP 56.8 % LV SV A4C 92.8 ml LV SV A2C 89.3 ml LV SV BP 91.5 ml LV CO A4C 6.6 L/min LV CO A2C 6.4 L/min LV CO BP 6.5 L/min HR A4C 71.15 BPM HR A2C 71.83 BPM LV EDV Index (BP) LA Volume LA Length A4C 4.5 cm LA Length A2C LA Area A4C s 13.81 cm2 LA Area A2C s LA Vol A4C A-L 36.08 mL LA Vol A2C A-L LA Vol Biplane A-L LA Vol A4C MOD 33.2 mL LA Vol A2C MOD LA Vol BP MOD RA Volume RA Area A4C 6.9 cm2 RA ESV A4C (A-L) 8.7mL RA Vol/BSA A4C A-L RA Length A4C 4.6 cm RA ESV A4C (MOD) 8.6mL LV Diastology MV E' medial 0.068 (>0.07 m/s) MV E Vmax 0.58 (0.4-1.3 m/s) MV E/E' MED 8.55 (<14) MV A Vmax 0.80 (0.4-1.3 m/s) MV E' lateral 0.082 (>0.1 m/s) E/A Ratio 0.7 MV E/E' LAT 7.08 (<14) MV E' Average 0.075 m/s MV E/E'(average) 7.75 Aortic Valve AoV Vmax 1.03 m/s LVOT Vmax 0.91 m/s AoV Peak Grad 4.2 mmHg LVOT Peak Grad 3.3 mmHg AoV Area (Vmax) 3.91 cm2 LVOT VTI 0.194 m AoV VTI 0.231 m LVOT Mean Grad 1.9 mmHg AoV Mean Gio. 0.76 m/s LVOT SV 85.48 mL AoV Mean Grad 2.6 mmHg LVOT Diam s 2.35 cm AoV Area (VTI) 3.70 cm2 AV Regurg Peak Gr. 4.21 mmHg Velocity Ratio 0.88 Mitral Valve MV DT 219 (160-240 msec) Pulmonary Valve PV Vmax 0.69 (0.5-1.5 m/s) RVOT Vmax 0.38 m/s PV Peak Grad 1.9 mmHg RVOT Peak Gr. 0.6 mmHg PV Mean Gio 0.40 m/s RVOT VTI 0.091 m PV Mean Grad 0.8 mmHg RVOT Mean Gr. 0.3 mmHg
== END 2025-01-23 03:12 ==
LOC: DI 02:53
PROVIDERS: PCP Nurse Practitioner Family; Visit Provider Internal Medicine Cardiovascular Disease
DX: I10 Essential (primary) hypertension (principal)
CPT/HCPCS: 93306

== ENCOUNTER 2025-02-28 11:40 | Outpatient (CLI) | payer SELFPAY ==
--- NOTE | 2025-02-28 11:30 | RT.EKG_ITS ---
APPROVED REPORT Exam: Resting ECG Reason for Exam: Chest tightness Patient Location: O HR:70 bpm ECG Measurements Heart Rate 70 AXIS VA 175 P 8 QRSd 91 QRS -4 QT 410 T 20 QTc 443 Conclusion Sinus rhythm...normal P axis, V-rate 50- 99 Left ventricular hypertrophy...multiple voltage criteria
== END 2025-02-28 11:41 | disposition home or self-care (01) ==
LOC: DI.KIM 11:40
PROVIDERS: PCP Nurse Practitioner Family; Visit Provider Nurse Practitioner Family
DX: R07.89 Other chest pain (principal); I51.7 Cardiomegaly
CPT/HCPCS: 93010

== ENCOUNTER 2025-03-21 18:54 | Outpatient (CLI) | payer SELFPAY ==
[2025-03-21 16:31] LABS: Hemoglobin A1C 5.6 % (<5.7)
[2025-03-21 18:26] LABS: Anion Gap 9.1 mmol/L (3-11); BUN 14 mg/dL (7-18); CO2 28.9 mmol/L (21.0-32.0); Calcium 9.5 mg/dL (8.5-10.1); Calculated LDL 142 mg/dL (<100); Chloride 102 mmol/L (98-107); Cholesterol 261 mg/dL (<200); Estimated GFR 103.87 (mL/min/1.73m2); Glucose 96 mg/dL (74-106); HDL Cholesterol 41 mg/dL (>or=40); Potassium 4.3 mmol/L (3.5-5.1); Sodium 140 mmol/L (136-145); Triglyceride 394 mg/dL (<150)
== END 2025-03-21 18:55 | disposition home or self-care (01) ==
LOC: LBO 18:55
PROVIDERS: PCP Nurse Practitioner Family; Visit Provider Nurse Practitioner Family
DX: I10 Essential (primary) hypertension (principal); Z83.3 Family history of diabetes mellitus; Z00.00 Encounter for general adult medical examination without abnormal findings
CPT/HCPCS: 36415; 80048; 80061; 83036